=== PATIENT | female | born 1970 | race Caucasian/White ===

== ENCOUNTER 2017-02-08 18:58 | Emergency (ER) | payer OTHER ==
[~2017-02-08] VITALS: Ht 165.1 cm; Wt 77.5 kg
[~2017-02-08 18:58] MED LIST: CYCL5TAB PO; NAPR275T83 PO; SULF-182 PO; TRAM50TA2 PO
[2017-02-08 19:08] VITALS: Ht 165.1 cm; Wt 77.5 kg
[2017-02-08] MEDS ORDERED: ALBU8.5H3 INH (19:35)
[2017-02-08] MEDS ORDERED: AZIT250T94 PO (19:35)
[2017-02-08] MEDS ORDERED: FEXO180T61 PO (19:36)
[2017-02-08] MEDS ORDERED: D-ME473S18 PO (19:36)
--- NOTE | 2017-02-08 19:40 | ERD ---
ER Documentation Chief Complaint Date/Time DATE: 02/08/17 TIME: 19:38 Chief Complaint cough/headache/runny nose x 4 days HPI This is a 46-year-old female presents to the ER with a cough, headache, runny nose for the last 4 days. Per patient cough is productive and constant is worsening. Patient's or amer-xto-accflgy medications however has not worked. Headache is located all over her head is worsen or she coughs. She denies any hemoptysis patient denies any chest pain shortness of breath. She has not child anywhere. ROS 12 point review of systems was done, all negative except per HPI. Medications Home Meds Active Scripts Fexofenadine Hcl* (Yvonne*) 180 Mg Tablet, 180 MG PO DAILY, #30 TAB Prov:ARMANDO BLAIR 02/08/17 Dextromethorphan Hb-Promethazine Hcl (Promethazine DM Syrup) 473 Ml Syrup, 10 ML PO Q6H Y for COUGH, #4 OZ Prov:ARMANDO BLAIR 02/08/17 Albuterol Sulfate* (Proair HFA*) 8.5 Gm Hfa.aer.ad, 2 PUFF INH Q4, #1 INHALER Prov:ARMANDO BLAIR 02/08/17 Azithromycin* (Zithromax*) 250 Mg Tablet, 250 MG PO .ZPACK DIRECTED, #6 TAB TAKE 500 MG (2 TABS) THE FIRST DAY THEN 250 MG (1 TAB) DAYS 2-5 Prov:ARMANDO BLAIR 02/08/17 Tramadol HCl (Tramadol HCl) 50 Mg Tablet, 50 MG PO Q4 Y for PAIN, #20 TAB Prov:VLAD NEGRON PA-C 09/18/16 Cyclobenzaprine Hcl* (Cyclobenzaprine Hcl*) 5 Mg Tablet, 5 MG PO Q8H Y for PAIN , #15 TAB Prov:VLAD NEGRON PA-C 09/18/16 Naproxen Sodium* (Naproxen*) 275 Mg Tablet, 275 MG PO BID, #20 TAB Prov:JANET LEA ENGRAVER 05/13/16 Sulfamethoxazole-Trimethoprim (Sulfamethoxazole-Trimethoprim DS) 800-160 Mg Tablet, 1 TAB PO BID, #20 TAB Prov:JANET LEA ENGRAVER 05/13/16 Reported Medications [None] No Conflict Check 01/22/12 Allergies Allergies: Coded Allergies: No Known Allergies (Verified Allergy, Unknown, 02/08/17) PMhx/Soc History of Surgery: Yes (c-sections x3) Anesthesia Reaction: No Hx Neurological Disorder: No Hx Respiratory Disorders: No Hx Cardiac Disorders: No Hx Psychiatric Problems: No Hx Miscellaneous Medical Probl: No Hx Alcohol Use: No Hx Substance Use: No Hx Tobacco Use: No Physical Exam Vitals Vital Signs Date Time Temp Pulse Resp B/P Pulse Ox O2 Delivery O2 Flow Rate FiO2 02/08/17 19:08 100.7 87 20 166/81 98 Physical Exam GENERAL: The patient is well-developed, well-nourished, in no acute distress. NECK: Cervical spine is non tender with no step off. Supple, no nuchal rigidity HEENT: Atraumatic. Pupils equal, round and reactive to light. Extraocular muscles are grossly intact. Conjunctivae pink, no discharge. Bilateral tympanic membranes are clear with no evidence of erythema, effusion or dulling of the light reflex. Tonsilar erythema with no exudates or uvular deviation. Clear rhinorrhea. RESPIRATORY: Clear to auscultation bilaterally. There are no rales, wheezes or rhonchi. HEART: Regular rate and rhythm. No murmurs, clicks, rubs or gallops. EXTREMITIES: No clubbing or cyanosis. Full range of motion. Grossly neurovascularly intact. NEUROLOGIC: Alert and oriented. Cranial nerves II through XII are intact. SKIN: There is no rash. The skin is warm and dry. Procedures/MDM Differential diagnosis includes but is not limited to; Viral URI, allergic rhinitis, bronchitis, pertussis,pneumonia. She will be treated for possible bacterial bronchitis, as her symptoms have gotten significantly worse. Clinical suspicion for pneumonia is low as patient appears well, is not hypoxic or in any respiratory distress. Additionally, patients physical examination is benign. Plan was discussed with patient they understand and agree. Patient needs to follow up with PCP in 1-2 days or return to ER sooner if symptoms worsen. Departure Diagnosis: Primary Impression: Bronchitis Condition: Stable Patient Instructions: What Is Bronchitis? Additional Instructions: Llame al doctor MAANA y seth maddie LIT PARA DENTRO DE 1-2 STARK.Dgale a la secretaria que nosotros le instruimos hacer esta lit.Avise o llame si guzman condicin se empeora antes de la lit. Regresa aqui si peor o no mejor. ARMANDO BLAIR Feb 08, 2017 19:40
== END 2017-02-08 19:38 | disposition home or self-care (01) ==
LOC: E/R 18:58
DX: J20.9 Acute bronchitis, unspecified (principal)
CPT/HCPCS: 99284

== ENCOUNTER 2017-12-29 17:26 | Emergency (ER) | END 2017-12-29 20:57 | disposition home or self-care (01) ==

== ENCOUNTER 2018-01-15 23:35 | Emergency (ER) | END 2018-01-16 03:25 | disposition home or self-care (01) ==

== ENCOUNTER 2018-06-07 20:22 | Emergency (ER) | END 2018-06-08 00:22 | disposition home or self-care (01) ==

== ENCOUNTER 2018-07-18 14:07 | Emergency (ER) | END 2018-07-18 17:50 | disposition home or self-care (01) ==

== ENCOUNTER 2018-10-03 19:23 | Emergency (ER) | END 2018-10-03 21:15 | disposition home or self-care (01) ==

== ENCOUNTER 2018-12-11 19:42 | Emergency (ER) | payer OTHER ==
[~2018-12-11] VITALS: Ht 162.6 cm; Wt 76.0 kg
[~2018-12-11 19:42] MED LIST changes: +ALBU8.5H8 INH; +AZIT250T PO; +BEN25 PO; +CYCL10TA7 PO; +D-ME473S18 PO; +DIPH1TAB PO; +ELIM TOP; +FEXO180T61 PO; +HYDR-3980 PO; +HYDR-4011 PO; +IBUP-1542 PO; +IBUP800T48 PO; +LORA10CA PO; +ONDA4TAB14 PO; +PRED20TA PO; +RANI150T35 PO
[2018-12-11 19:48] VITALS: Ht 162.6 cm; Wt 76.0 kg
[2018-12-11] MEDS ORDERED: CEPH500C PO (22:16)
[2018-12-11] MEDS ORDERED: SULF1TAB31 PO (22:16)
--- NOTE | 2018-12-11 22:20 | ERD ---
ER Documentation Chief Complaint Chief Complaint POSS ABCESS IN THE VAGINAL AREA, HX OF SIMILAR EVENTS HPI Is a 48-year-old female who has a history of vaginal abscess and thinks she has another one. Had it for about 2 weeks has been getting larger and today at 6 PM she states it popped. She noticed purulent drainage from the site. No fever. No vomiting. No dysuria hematuria frequency. ROS All systems reviewed and are negative except as per history of present illness. Medications Home Meds Active Scripts Cephalexin* (Cephalexin*) 500 Mg Capsule, 500 MG PO Q6, #28 CAP Prov:FRANK TERRY PA-C 12/11/18 Sulfamethoxazole/Trimethoprim* (Bactrim Ds* Tablet) 1 Each Tablet, 1 TAB PO BID, #14 TAB Prov:FRANK TERRY PA-C 12/11/18 Ibuprofen* (Motrin*) 600 Mg Tab, 600 MG PO Q6, #30 TAB Prov:BRIGITTE ZEE PA-C 10/03/18 Hydrocodone/Acetaminophen ([place] 5-325 Tablet) 1 Each Tablet, 1 TAB PO Q6H PRN for PAIN, #15 TAB Prov:FRANK TERRY PA-C 07/18/18 Ibuprofen* (Motrin*) 800 Mg Tab, 800 MG PO Q6, #30 TAB Prov:FRANK TERRY PA-C 07/18/18 Cyclobenzaprine Hcl* (Cyclobenzaprine Hcl*) 10 Mg Tablet, 10 MG PO TID, #15 TAB Prov:FRANK TERRY PA-C 07/18/18 Prednisone* (Prednisone*) 20 Mg Tab, 40 MG PO DAILY for 4 Days, TAB Prov:DOTTIE CANAS 06/07/18 Loratadine* (Claritin*) 10 Mg Capsule, 10 MG PO DAILY, #30 CAP Prov:DOTTIE CANAS 06/07/18 Diphenhydramine Hcl* (Benadryl*) 25 Mg Cap, 25 MG PO Q6 PRN for ITCHING/RASH, #30 TAB Prov:DOTTIE CANAS 06/07/18 Permethrin* (Elimite*) 5% Cr, 1 APPLIC TOP ONCE, #2 TUB Prov:DOTTIE CANAS 06/07/18 Cyclobenzaprine Hcl* (Cyclobenzaprine Hcl*) 10 Mg Tablet, 10 MG PO TID, #15 TAB Prov:DALTON GARCIA TOXICOLOGIST 01/16/18 Hydrocodone/Acetaminophen ([place] 5-325 Tablet) 1 Each Tablet, 1 TAB PO Q6H PRN for SEVERE PAIN LEVEL 7-10, #20 TAB Prov:DALTON GARCIA TOXICOLOGIST 01/16/18 Ibuprofen* (Motrin*) 600 Mg Tab, 600 MG PO Q6H PRN for PAIN AND OR ELEVATED TEMP, #30 TAB Prov:DALTON GARCIA TOXICOLOGIST 01/16/18 Ranitidine Hcl* (Zantac*) 150 Mg Tablet, 150 MG PO BID PRN for EPIGASTRIC PAIN, #30 TAB Prov:BELL GIRARD DO 12/29/17 Diphenoxylate HCl/Atropine (Lomotil 2.5-0.025 mg Tablet) 1 Each Tablet, 1 TAB PO QID PRN for DIARRHEA, #10 TAB Prov:BELL GIRARD DO 12/29/17 Hydrocodone/Acetaminophen ([place] 10-325 Tablet) 1 Each Tablet, 1 TAB PO Q6H PRN for PAIN, #20 TAB Prov:BELL GIRARD DO 12/29/17 Ondansetron (Ondansetron Odt) 4 Mg Tab.rapdis, 4 MG PO Q6H PRN for NAUSEA AND/OR VOMITING, #10 TAB Prov:BELL GIRARD DO 12/29/17 Fexofenadine Hcl* (Yvonne*) 180 Mg Tablet, 180 MG PO DAILY, #30 TAB Prov:ARMANDO BLAIR 02/08/17 Dextromethorphan Hb-Promethazine Hcl (Promethazine DM Syrup) 473 Ml Syrup, 10 ML PO Q6H PRN for COUGH, #4 OZ Prov:ARMANDO BLAIR 02/08/17 Albuterol Sulfate* (Proair HFA*) 8.5 Gm Hfa.aer.ad, 2 PUFF INH Q4, #1 INHALER Prov:ARMANDO BLAIR 02/08/17 Azithromycin* (Zithromax*) 250 Mg Tablet, 250 MG PO .ASHLEY DIRECTED, #6 TAB TAKE 500 MG (2 TABS) THE FIRST DAY THEN 250 MG (1 TAB) DAYS 2-5 Prov:ARMANDO BLAIR 02/08/17 Tramadol HCl (Tramadol HCl) 50 Mg Tablet, 50 MG PO Q4 PRN for PAIN, #20 TAB Prov:VLAD NEGRON PA-C 09/18/16 Cyclobenzaprine Hcl* (Cyclobenzaprine Hcl*) 5 Mg Tablet, 5 MG PO Q8H PRN for PAIN, #15 TAB Prov:VLAD NEGRON PA-C 09/18/16 Naproxen Sodium* (Naproxen*) 275 Mg Tablet, 275 MG PO BID, #20 TAB Prov:MANAGBOBBYOD,JANET P TOXICOLOGIST 05/13/16 Sulfamethoxazole-Trimethoprim (Sulfamethoxazole-Trimethoprim DS) 800-160 Mg Tablet, 1 TAB PO BID, #20 TAB Prov:MANAGUELOD,JANET P TOXICOLOGIST 05/13/16 Reported Medications [None] No Conflict Check 01/22/12 Allergies Allergies: Coded Allergies: No Known Allergies (Verified Allergy, Unknown, 02/08/17) PMhx/Soc Medical and Surgical Hx: pt denies Medical Hx History of Surgery: Yes (c-sections x3) Anesthesia Reaction: No Hx Neurological Disorder: No Hx Respiratory Disorders: No Hx Cardiac Disorders: No Hx Psychiatric Problems: No Hx Miscellaneous Medical Probl: No Hx Alcohol Use: No Hx Substance Use: No Hx Tobacco Use: No Smoking Status: Never smoker FmHx Family History: No diabetes Physical Exam Vitals Vital Signs Date Temp Pulse Resp B/P (MAP) Pulse Ox O2 O2 Flow FiO2 Time Delivery Rate 12/11/18 97.0 81 16 174/85 97 19:48 (114) Physical Exam INITIAL VITAL SIGNS: Reviewed by me GENERAL: Awake, alert and oriented x 4, well appearing, nontoxic, speaking in full sentences. No acute distress RESPIRATORY: Clear to auscultation bilaterally. Symmetric chest wall rise. No wheezing or rales. No accessory muscle use. CV: Regular rate and rhythm. No murmurs, rubs, or gallops. ABDOMEN: Soft, non-distended. Nontender. Negative [place]. Negative [place] point tenderness. No CVA tenderness bilaterally. No guarding. No rebound. left-sided pelvic vaginal abscess is already open with scant drainage Procedures/MDM Patient has vaginal abscess is already open and draining. Therefore no incision and drainage is needed at this time. She was discharged with Bactrim and Keflex. Patient counseled regarding my diagnostic impression and care plan. Prior to discharge all questions answered. Pt agrees with treatment plan and understands strict return precautions. Pt is instructed to follow up with primary care provider within 24-48 hours. Precautionary instructions provided including instructions to return to the ER if not improving or for any worsening or changing symptoms or concerns. Departure Diagnosis: Primary Impression: Abscess Condition: Stable Patient Instructions: Abscess, Antiobiotic Treatment Only Additional Instructions: Call your primary care doctor TOMORROW for an appointment during the next 1-2 days.See the doctor sooner or return here if your condition worsens before your appointment time. FRANK TERRY PA-C Dec 11, 2018 22:20
[2018-12-11 22:34] VITALS: BP 161/89; PULSE 70; RESP 18
== END 2018-12-11 22:36 | disposition home or self-care (01) ==
LOC: FTE 19:42
DX: N76.4 Abscess of vulva (principal)
CPT/HCPCS: 99283

== ENCOUNTER 2019-05-02 23:17 | Emergency (ER) | payer OTHER ==
[~2019-05-02] VITALS: Ht 157.5 cm; Wt 78.1 kg
[~2019-05-02 23:17] MED LIST changes: +CEPH500C PO; +SULF1TAB31 PO
[2019-05-02 23:31] VITALS: Ht 157.5 cm; Wt 78.1 kg
[2019-05-03] MEDS ORDERED: SOD CHLORIDE 0.9% 1,000 ML IV ONE (01:30)
[2019-05-03] MEDS ORDERED: MECLIZINE 12.5 MG TAB PO ONE (01:30)
[2019-05-03] MEDS ORDERED: MECL12.574 PO (02:30)
--- NOTE | 2019-05-03 02:30 | ERD ---
ER Documentation Chief Complaint Chief Complaint DIZZINESS, N/V AND PARNELL X TODAY. HPI This is a 48-year-old female with a past medical history of GERD/gastritis who is presenting with feeling generally unwell and lightheadedness today. The patient reports waking up and feeling generally unwell. She has been fatigued and lightheaded all day. The patient reports that when going from sitting to standing, she feels very lightheaded like she is going to pass out. This has made her feel unsteady at times. The patient also endorses a mild frontal headache and reports nausea with few episodes of nonbilious nonbloody vomiting today. This is not the worst headache of the patient's life. It is been progressive and waxing and waning in nature today. She does not have a personal or family history of cerebral aneurysm. The patient has had no focal deficits. The patient has had no weakness or numbness or tingling to the face or extremities. The patient reports feeling dizzy, but she reports that the room has not been spinning. The patient denies feeling sick recently. The patient denies fever or chills. The patient has had no headache or vision changes. The patient does not endorse neck or back pain. The patient has had no chest pain or trouble breathing. The patient denies nausea or vomiting. The patient denies abdominal pain. The patient denies changes to bowel movements or urination. ROS All systems reviewed and are negative except as per history of present illness. Medications Home Meds Active Scripts Cephalexin* (Cephalexin*) 500 Mg Capsule, 500 MG PO Q6, #28 CAP Prov:FRANK TERRY PA-C 12/11/18 Sulfamethoxazole/Trimethoprim* (Bactrim Ds* Tablet) 1 Each Tablet, 1 TAB PO BID, #14 TAB Prov:FRANK TERRY PA-C 12/11/18 Ibuprofen* (Motrin*) 600 Mg Tab, 600 MG PO Q6, #30 TAB Prov:BRIGITTE ZEE PA-C 10/03/18 Hydrocodone/Acetaminophen ([place] 5-325 Tablet) 1 Each Tablet, 1 TAB PO Q6H PRN for PAIN, #15 TAB Prov:FRANK TERRY PA-C 07/18/18 Ibuprofen* (Motrin*) 800 Mg Tab, 800 MG PO Q6, #30 TAB Prov:FRANK TERRY PA-C 07/18/18 Cyclobenzaprine Hcl* (Cyclobenzaprine Hcl*) 10 Mg Tablet, 10 MG PO TID, #15 TAB Prov:FRANK TERRY PA-C 07/18/18 Prednisone* (Prednisone*) 20 Mg Tab, 40 MG PO DAILY for 4 Days, TAB Prov:DOTTIE CANAS 06/07/18 Loratadine* (Claritin*) 10 Mg Capsule, 10 MG PO DAILY, #30 CAP Prov:DOTTIE CANAS 06/07/18 Diphenhydramine Hcl* (Benadryl*) 25 Mg Cap, 25 MG PO Q6 PRN for ITCHING/RASH, #30 TAB Prov:DOTTIE CANAS 06/07/18 Permethrin* (Elimite*) 5% Cr, 1 APPLIC TOP ONCE, #2 TUB Prov:DOTTIE CANAS 06/07/18 Cyclobenzaprine Hcl* (Cyclobenzaprine Hcl*) 10 Mg Tablet, 10 MG PO TID, #15 TAB Prov:DALTON GARCIA NP 01/16/18 Hydrocodone/Acetaminophen ([place] 5-325 Tablet) 1 Each Tablet, 1 TAB PO Q6H PRN for SEVERE PAIN LEVEL 7-10, #20 TAB Prov:DALTON GARCIA NP 01/16/18 Ibuprofen* (Motrin*) 600 Mg Tab, 600 MG PO Q6H PRN for PAIN AND OR ELEVATED TEMP, #30 TAB Prov:DALTON GARCIA NP 01/16/18 Ranitidine Hcl* (Zantac*) 150 Mg Tablet, 150 MG PO BID PRN for EPIGASTRIC PAIN, #30 TAB Prov:BELL GIRARD DO 12/29/17 Diphenoxylate HCl/Atropine (Lomotil 2.5-0.025 mg Tablet) 1 Each Tablet, 1 TAB PO QID PRN for DIARRHEA, #10 TAB Prov:BELL GIRARD DO 12/29/17 Hydrocodone/Acetaminophen ([place] 10-325 Tablet) 1 Each Tablet, 1 TAB PO Q6H PRN for PAIN, #20 TAB Prov:BELL GIRARD DO 12/29/17 Ondansetron (Ondansetron Odt) 4 Mg Tab.rapdis, 4 MG PO Q6H PRN for NAUSEA AND/OR VOMITING, #10 TAB Prov:BELL GIRARD DO 12/29/17 Fexofenadine Hcl* (Yvonne*) 180 Mg Tablet, 180 MG PO DAILY, #30 TAB Prov:ROSSYARMANDO Mike 02/08/17 Dextromethorphan Hb-Promethazine Hcl (Promethazine DM Syrup) 473 Ml Syrup, 10 ML PO Q6H PRN for COUGH, #4 OZ Prov:ROSSYARMANDO Mike 02/08/17 Albuterol Sulfate* (Proair HFA*) 8.5 Gm Hfa.aer.ad, 2 PUFF INH Q4, #1 INHALER Prov:ARMANDO BLAIR 02/08/17 Azithromycin* (Zithromax*) 250 Mg Tablet, 250 MG PO .ZPACK DIRECTED, #6 TAB TAKE 500 MG (2 TABS) THE FIRST DAY THEN 250 MG (1 TAB) DAYS 2-5 Prov:ARMANDO BLAIR 02/08/17 Tramadol HCl (Tramadol HCl) 50 Mg Tablet, 50 MG PO Q4 PRN for PAIN, #20 TAB Prov:VLAD NEGRON PA-C 09/18/16 Cyclobenzaprine Hcl* (Cyclobenzaprine Hcl*) 5 Mg Tablet, 5 MG PO Q8H PRN for PAIN, #15 TAB Prov:VLAD NEGRON PA-C 09/18/16 Naproxen Sodium* (Naproxen*) 275 Mg Tablet, 275 MG PO BID, #20 TAB Prov:JANET [employer] ATTENDANT 05/13/16 Sulfamethoxazole-Trimethoprim (Sulfamethoxazole-Trimethoprim DS) 800-160 Mg Tablet, 1 TAB PO BID, #20 TAB Prov:JANET [employer] ATTENDANT 05/13/16 Reported Medications [None] No Conflict Check 01/22/12 Allergies Allergies: Coded Allergies: No Known Allergies (Verified Allergy, Unknown, 02/08/17) PMhx/Soc History of Surgery: Yes (c-sections x3) Anesthesia Reaction: No Hx Neurological Disorder: No Hx Respiratory Disorders: No Hx Cardiac Disorders: No Hx Psychiatric Problems: No Hx Miscellaneous Medical Probl: Yes (ANEMIA) Hx Alcohol Use: No Hx Substance Use: No Hx Tobacco Use: No Smoking Status: Never smoker FmHx Family History: No diabetes Physical Exam Vitals Vital Signs Date Temp Pulse Resp B/P (MAP) Pulse Ox O2 O2 Flow FiO2 Time Delivery Rate 05/02/19 97.7 65 18 191/88 99 23:31 (122) Physical Exam Const: No apparent distress, well-developed, well-nourished Head: Normocephalic, Atraumatic Eyes: Normal Conjunctiva. Extraocular movements intact. Pupils equal, round and reactive to light ENT: Normal External Ears, Nose and Mouth. Neck: Full range of motion. No meningismus. Resp: Clear to auscultation bilaterally, No wheezes, rales or rhonchi Cardio: Regular rate and rhythm. No murmurs, rubs or gallops Abd: Soft, non tender, non distended. Normal bowel sounds Skin: No petechiae or rashes Back: No midline tenderness. No CVA tenderness Ext: No cyanosis, or edema Neur: Awake and alert, oriented 4. Cranial nerves intact. No facial droop. Normal strength, sensation and coordination. Psych: Normal Mood and Affect Result Diagram: 05/02/19234905/02/192349 Results 24 hrs Laboratory Tests Test 05/02/19 23:50 05/02/19 23:55 White Blood Count 7.7 10^3/ul Red Blood Count 4.42 10^6/ul Hemoglobin 12.0 g/dl Hematocrit 37.2 % Mean Corpuscular Volume 84.2 fl Mean Corpuscular Hemoglobin 27.1 pg Mean Corpuscular Hemoglobin Concent 32.3 g/dl Red Cell Distribution Width 18.6 % Platelet Count 296 10^3/UL Mean Platelet Volume 10.8 fl Immature Granulocytes % 0.300 % Neutrophils % 46.9 % Lymphocytes % 39.7 % Monocytes % 9.5 % Eosinophils % 3.1 % Basophils % 0.5 % Nucleated Red Blood Cells % 0.0 /100WBC Immature Granulocytes # 0.020 10^3/ul Neutrophils # 3.6 10^3/ul Lymphocytes # 3.0 10^3/ul Monocytes # 0.7 10^3/ul Eosinophils # 0.2 10^3/ul Basophils # 0.0 10^3/ul Nucleated Red Blood Cells # 0.0 10^3/ul Sodium Level 141 mmol/L Potassium Level 3.7 mmol/L Chloride Level 106 mmol/L Carbon Dioxide Level 26 mmol/L Anion Gap 9 Blood Urea Nitrogen 7 mg/dl Creatinine 0.64 mg/dl Est Glomerular Filtrat Rate mL/min > 60 mL/min Glucose Level 120 mg/dl Calcium Level 9.3 mg/dl Troponin I < 0.012 ng/ml POC Beta HCG, Qualitative NEGATIVE Current Medications Medications Dose Sig/Elvia Start Time Status Last (Trade) Ordered Route PRN Stop Time Admin Dose Reason Admin Meclizine 25 mg ONCE ONCE 05/03/19 DC 05/03/19 HCl PO 01:30 05/03/19 01:16 (Antivert) 01:31 Sodium 1,000 ml @ Q1H ONCE 05/03/19 05/03/19 Chloride 1,000 mls/hr IV 01:30 05/03/19 01:16 02:29 Procedures/MDM MDM The patient's presentation warrants further investigation. Previous medical records, if available, were reviewed. LABS The patient's laboratory testing was obtained and reviewed. No emergent treatment was required unless described below. CBC: No E/o systemic infection or severe anemia or thrombocytopenia Chemistry: No E/o severe acidosis or alkalosis or renal failure or diabetic ketoacidosis Troponin: No E/o acute ischemia HCG: Negative EKG EKG read by me: Rate/Rhythm: Regular rate and rhythm at a rate of 61 bpm Intervals: Normal [place]: Normal Impression: No evidence of acute ischemia or arrhythmia TREATMENT/DISPOSITION The patient presents with headache and symptoms of near syncope. Differential diagnosis of a headache includes migraine, tension headache, cluster headache. The patient has no focal deficits. The neurologic exam is reassuring. I have decreased suspicion for cerebral ischemia. There was no trauma or injury. There is no personal or family history of cerebral aneurysm. This is not the worst headache of the patient's life. It was not acutely severe. It is been prog ressive in nature. I have decreased suspicion for SAH or other ICH. I have low suspicion for temporal arteritis, cavernous venous thrombosis, subdural hematoma, epidural hematoma, meningitis. The patient has a reassuring physical exam. The patient is not clinically orthostatic. That said, I did give the patient a liter of fluids, which did seem to help her symptoms. The patient did endorse dizziness. While I did not see any obvious nystagmus or clinical findings of vertigo, I did opt to treat the patient for vertigo with meclizine which actually did help to improve her symptoms as well. These findings may be elucidated further in an outpatient setting with her primary care physician. The patient has no signs of emergent or symptomatic anemia. The patient does not have any emergent electrolyte or metabolic emergencies. I have decrease suspicion for a thyroid disorder. The patient is not toxic appearing. I have decreased suspicion for an infectious etiology of symptoms. The patient's EKG is reassuring. I have low suspicion for acute coronary syndrome. I do not see evidence of any emergent cardiac arrhythmia, which includes but is not limited to heart block, Brugada syndrome or WPW. The patient has no heart murmurs or rales. I have low suspicion for hypertrophic cardiomyo chandler. I do not see evidence of CHF. The patient does not endorse any chest or pleuritic pain. The history is negative for bleeding or clotting disorders. The patient has not been involved in any recent prolonged trips or surgeries or hospitalizations. The patient has no calf tenderness or swelling. I have decreased suspicion for PE as the etiology of symptoms. DISCHARGE Upon reevaluation of the patient, symptoms have improved. No emergent diagnoses were identified. At this time, I feel that the patient stable for discharge. The patient was instructed to follow-up with a primary care physician in 1-3 days. The patient will be given strict precautions with which to return to the emergency department. Prescriptions: Meclizine The patient's blood pressure was elevated at greater than 120/80 while in the emergency department. The patient was otherwise stable with no evidence of hypertensive urgency or emergency. The patient does not require admission for blood pressure control. I have discussed with the patient the risks of hypertension. I have instructed the patient to return to the ER for any new or worsening symptoms including chest pain, shortness of breath, headache, blurred vision, confusion, nausea, vomiting or LOC. I have advised the patient to follow up with the primary care physician for outpatient monitoring and treatment for hypertension in 1-3 days. Disclaimer: Inadvertent spelling and grammatical errors are likely due to EHR/dictation software use and do not reflect on the overall quality of patient care. Note that the electronic time recorded on this note does not necessarily reflect the actual time of the patient encounter. Departure Diagnosis: Primary Impression: Near syncope Additional Impressions: Lightheadedness Dizziness Headache Headache type: unspecified Headache chronicity pattern: acute headache Intractability: not intractable Qualified Codes: R51 - Headache Nausea & vomiting Vomiting type: unspecified Vomiting Intractability: non-intractable Qualified Codes: R11.2 - Nausea with vomiting, unspecified Condition: Stable Patient Instructions: Possible Causes of Dizziness or Fainting, Self-Care for Headaches, Nausea and Vomiting-Adult, Dizziness (Vertigo) and Balance Problems: Ensuring Your Safety Additional Instructions: Thank you for for coming to [facility] for your care today. Please ask your nurse or provider if you have questions about your care today and do not leave until all your questions have been answered. Please use any medications given as directed and follow-up with your doctor (or the doctor you were referred to) in the next 1-3 days. If you do not have a primary care doctor you may follow up at the [facility] or formerly [facility] (listed below). You may also use motrin and tylenol as needed for fever and/or pain unless instructed otherwise by your provider or nurse. Indications for more urgent follow-up have been discussed, but you may return to the Emergency Department at ANY time for any worrisome or worsening symptoms. If you have abdominal pain, please know that no test or exam you received is perfect and you should follow up within 8 hours for continued pain. If you had any imaging studies today, such as an X-Ray or CT Scan, these studies will be reviewed later by a radiologist. You will be called if there are important findings that were not identified today, so make sure the contact information you provided at registration is correct. If you received any narcotic pain control medicine today, such as Vicodin, Morphine or Dilaudid, your coordination and judgment may be affected for a number of hours. Please do not drive or operate heavy machinery, and you may want someone to assist you at home. If you were given a prescription for narcotic medication, be aware that it is very addictive- use sparingly and only if necessary. PLEASE SEEK FURTHER EVALUATION AND MANAGEMENT AT YOUR DOCTORS OFFICE WITHIN THE NEXT 1-3 DAYS. IT IS YOUR RESPONSIBILITY TO MAKE AN APPOINTMENT FOR FOLOW-UP CARE. IF YOU HAVE A PRIMARY DOCTOR, PLEASE CALL THEIR OFFICE TO SCHEDULE AN APPOINTMENT FOR FOLLOW UP. IF YOU DO NOT HAVE A PRIMARY DOCTOR YOU CAN CALL OUR PHYSICIAN REFERRAL HOTLINE AT IF YOU CAN NOT AFFORD TO SEE A PHYSICIAN YOU CAN CHOSE FROM THE FOLLOWING [facility] CLINICS: [facility] [address] [facility] [address] [facility]. [facility] [address] [facility] [address]. [facility] [address] [facility]. [facility]. [address] REZA NUGENT MD May 03, 2019 02:29
[2019-05-03 03:24] VITALS: BP 131/80; PULSE 63; RESP 14
== END 2019-05-03 03:24 | disposition home or self-care (01) ==
LOC: E/R 23:17
DX: R42 Dizziness and giddiness (principal); R55 Syncope and collapse; R11.2 Nausea with vomiting, unspecified; R51 Headache
CPT/HCPCS: 80048; 81025; 84484; 85025; J7030; Z7610; 36415; 93005

== ENCOUNTER 2019-07-02 20:27 | Emergency (ER) | payer OTHER ==
[~2019-07-02] VITALS: Ht 157.5 cm; Wt 77.0 kg
[~2019-07-02 20:27] MED LIST changes: +MECL12.574 PO
[2019-07-02 20:52] VITALS: Ht 157.5 cm; Wt 77.0 kg
[2019-07-02] MEDS ORDERED: DEXAMETHASONE 10 MG/ML 1 ML INJ IM ONE (22:00)
[2019-07-02] MEDS ORDERED: CYCLOBENZAPRINE 10 MG TAB PO ONE (22:00)
[2019-07-02 22:32] VITALS: BP 154/87; PULSE 17; RESP 16
== END 2019-07-02 22:33 | disposition home or self-care (01) ==
LOC: FTE 20:27
DX: M54.41 Lumbago with sciatica, right side (principal)
CPT/HCPCS: 96372; J1100; Z7502; Z7610